=== PATIENT | female | born 1960 | race Caucasian/White ===

== ENCOUNTER 2018-04-30 06:11 | Day surgery (SDC) | payer OTHER ==
[2018-04-21 19:05] VITALS: BMI 29.9
[2018-04-30] MEDS ORDERED: PROPOFOL 20 ML ONE (07:14)
[2018-04-30] MEDS ORDERED: MIDAZOLAM HCL 2 MG/2 ML SINGLE DOSE VIAL ONE (07:15)
[2018-04-30] MEDS ORDERED: LIDOCAINE HCL 2% (20ML MULTI-DOSE VIAL) NR ONE (07:20)
[2018-04-30 08:23] VITALS: TEMP 97.4
[2018-04-30 08:51] VITALS: BP 123/68; PULSE 58
--- NOTE | 2018-05-01 10:42 | OP ---
DATE OF OPERATION: DATE OF DICTATION: 05/01/2018 PREOPERATIVE DIAGNOSIS: Right long trigger finger. POSTOPERATIVE DIAGNOSIS: Right long trigger finger. SURGERY: Right long trigger finger release. SURGEON: Estrada Curran MD ANESTHESIA: Local with sedation. COMPLICATIONS: None. ESTIMATED BLOOD LOSS: Minimal. INDICATIONS FOR PROCEDURE: The patient is a 57-year-old female with the above finding indicated for operative treatment. Risks, benefits, and alternatives were discussed with patient at length. Proper informed consent was obtained. PROCEDURE: After proper identification of patient and correct operative site, patient was brought to the operating room and placed supine on the table. All prominences well padded. Sedation was given by the anesthesiologist. Local anesthesia was given with 2% lidocaine. Right upper extremity was prepped and draped in usual sterile fashion. Esmarch bandage to exsanguinate right upper extremity. Tourniquet was inflated to 250 mmHg. A longitudinal incision was made over the A1 alcides. Incision was taken sharply through skin with blunt and sharp dissection through subcutaneous tissues. A1 alcides was identified and divided longitudinally. Patient was asked to flex and extend the finger and there was no further triggering. The wound was repaired with a 5-0 nylon suture and sterile dressings were applied. Patient was brought to recovery room in stable condition. She tolerated procedure well. ESTRADA CURRAN M.D. [id number]
== END 2018-04-30 09:03 | disposition home or self-care (01) ==
LOC: FASU 06:11
PROVIDERS: ATTEND Orthopaedic Surgery Hand Surgery
PROC: 0LN70ZZ Release Right Hand Tendon, Open Approach (ICD-10-PCS; principal; 2018-04-30 07:54)
DX: M65.331 Trigger finger, right middle finger (principal)